=== PATIENT | male | born 1955 | race Caucasian/White ===

== ENCOUNTER 2017-10-23 10:36 | Inpatient (IN) | payer OTHER ==
[2017-10-23 11:39] LABS: ANION GAP 19 (8-16); BLOOD UREA NITROGEN 25 mg/dl (7-20); CALCIUM 9.9 mg/dl (8.4-10.2); CARBON DIOXIDE 31 mmol/L (21-31); CHLORIDE 97 mmol/L (97-110); CREATININE 1.18 mg/dl (0.61-1.24); GLUCOSE 257 mg/dl (70-220); SODIUM 144 mmol/L (135-144)
[2017-10-23 11:39] LABS: MAGNESIUM 1.5 mg/dl (1.7-2.5)
[2017-10-23 11:50] LABS: POTASSIUM 2.5 mmol/L (3.5-5.1)
[2017-10-23] MEDS: MAGNESIUM SULFATE 2 GM/50 ML 50 ML IVPB (12:09)
[2017-10-23] MEDS ORDERED: ACETAMINOPHEN 325 MG TAB PO ×2 (13:30→15:30)
[2017-10-23] MEDS ORDERED: ONDANSETRON 4 MG INJ IV (13:30)
[2017-10-23] MEDS: POTASSIUM CHLORIDE (SR) 20 MEQ TAB PO ×4 (13:47→23:51)
[2017-10-23] MEDS: POTASSIUM CHLORIDE 100 ML IVPB ×4 (14:07→23:41)
[2017-10-23] MEDS ORDERED: NACL 0.9% 3 ML SYG IV (15:30)
[2017-10-23] MEDS ORDERED: GLUCOSE GEL 15 GRAM TUBE PO ×2 (16:30)
[2017-10-23] MEDS ORDERED: DEXTROSE 50% 50 ML SYRINGE IV ×2 (16:30)
[2017-10-23] MEDS ORDERED: GLUCOSE GEL 15 GRAM TUBE BUCCAL (16:30)
[2017-10-23] MEDS ORDERED: GLUCAGON 1 MG INJ IM (16:30)
[2017-10-23 20:12] LABS: ANION GAP 16 (8-16); BLOOD UREA NITROGEN 23 mg/dl (7-20); CALCIUM 9.4 mg/dl (8.4-10.2); CARBON DIOXIDE 31 mmol/L (21-31); CHLORIDE 100 mmol/L (97-110); CREATININE 1.09 mg/dl (0.61-1.24); GLUCOSE 144 mg/dl (70-220); SODIUM 144 mmol/L (135-144)
[2017-10-23 20:28] LABS: POTASSIUM 2.9 mmol/L (3.5-5.1)
[2017-10-23] MEDS: metFORMIN 500 MG TAB PO (20:52)
[2017-10-23] MEDS: TAMSULOSIN (SR) 0.4 MG CAP PO (20:52)
[2017-10-23] MEDS: ATORVASTATIN 10 MG TAB PO (20:52)
[2017-10-23] MEDS: HYDROCHLOROTHIAZIDE 25 MG TAB PO (20:53)
[2017-10-23] MEDS: CLONIDINE 0.3 MG/24 HR PATCH TRANSDERM (21:57)
[2017-10-24] MEDS: POTASSIUM CHLORIDE 100 ML IVPB (02:13)
[2017-10-24 07:34] LABS: MAGNESIUM 1.8 mg/dl (1.7-2.5)
[2017-10-24 07:36] LABS: ANION GAP 16 (8-16); BLOOD UREA NITROGEN 22 mg/dl (7-20); CALCIUM 8.5 mg/dl (8.4-10.2); CARBON DIOXIDE 33 mmol/L (21-31); CHLORIDE 99 mmol/L (97-110); CREATININE 1.02 mg/dl (0.61-1.24); GLUCOSE 126 mg/dl (70-220); SODIUM 145 mmol/L (135-144)
[2017-10-24 07:38] LABS: POTASSIUM 2.7 mmol/L (3.5-5.1)
[2017-10-24] MEDS: metFORMIN 500 MG TAB PO ×2 (07:55→18:41)
[2017-10-24] MEDS: NEBIVOLOL 5 MG TAB PO (08:57)
[2017-10-24] MEDS: AMLODIPINE 10 MG TAB PO (08:58)
[2017-10-24] MEDS: MAGNESIUM OXIDE 400 MG TAB PO (08:58)
[2017-10-24] MEDS: LOSARTAN 50 MG TAB PO (08:58)
[2017-10-24] MEDS: POTASSIUM CHLORIDE (SR) 10 MEQ TAB PO ×2 (08:58→20:16)
[2017-10-24] MEDS ORDERED: HYDROCHLOROTHIAZIDE 25 MG TAB PO (09:00)
[2017-10-24] MEDS: POTASSIUM CHLORIDE (SR) 20 MEQ TAB PO ×3 (11:20→20:17)
[2017-10-24 13:17] LABS: ADD UMIC NO; UR ASCORBIC ACID NEGATIVE (NEGATIVE); UR BILIRUBIN (Dip) NEGATIVE (NEGATIVE); UR BLOOD (Dip) NEGATIVE (NEGATIVE); UR CLARITY CLEAR (CLEAR); UR COLOR YELLOW (YELLOW); UR GLUCOSE (Dip) NEGATIVE (NEGATIVE); UR KETONES (Dip) NEGATIVE (NEGATIVE); UR LEUKOCYTE ESTERASE (Dip) NEGATIVE Leu/ul (NEGATIVE); UR NITRITE (Dip) NEGATIVE (NEGATIVE); UR SPECIFIC GRAVITY (Dip) 1.014 (1.003-1.030); UR TOTAL PROTEIN (Dip) NEGATIVE (NEGATIVE); UR UROBILINOGEN (Dip) NEGATIVE (NEGATIVE)
[2017-10-24 17:57] LABS: ANION GAP 17 (8-16); BLOOD UREA NITROGEN 23 mg/dl (7-20); CARBON DIOXIDE 29 mmol/L (21-31); CHLORIDE 100 mmol/L (97-110); CREATININE 1.13 mg/dl (0.61-1.24); GLUCOSE 129 mg/dl (70-220); MAGNESIUM 1.7 mg/dl (1.7-2.5); POTASSIUM 3.1 mmol/L (3.5-5.1); SODIUM 143 mmol/L (135-144)
[2017-10-24] MEDS: ATORVASTATIN 10 MG TAB PO (20:16)
[2017-10-24] MEDS: TAMSULOSIN (SR) 0.4 MG CAP PO (20:16)
[2017-10-25] MEDS: metFORMIN 500 MG TAB PO ×2 (08:28→17:56)
[2017-10-25] MEDS: POTASSIUM CHLORIDE (SR) 20 MEQ TAB PO ×2 (08:29→09:00)
[2017-10-25] MEDS: NEBIVOLOL 5 MG TAB PO (08:31)
[2017-10-25] MEDS: LOSARTAN 50 MG TAB PO (08:32)
[2017-10-25] MEDS: HYDROCHLOROTHIAZIDE 25 MG TAB PO (08:33)
[2017-10-25 08:34] LABS: ANION GAP 13 (8-16); BLOOD UREA NITROGEN 22 mg/dl (7-20); CALCIUM 8.9 mg/dl (8.4-10.2); CARBON DIOXIDE 32 mmol/L (21-31); CHLORIDE 103 mmol/L (97-110); CREATININE 1.09 mg/dl (0.61-1.24); GLUCOSE 117 mg/dl (70-220); POTASSIUM 3.1 mmol/L (3.5-5.1); SODIUM 145 mmol/L (135-144)
[2017-10-25] MEDS: POTASSIUM CHLORIDE (SR) 10 MEQ TAB PO ×4 (08:34→20:19)
[2017-10-25] MEDS: AMLODIPINE 10 MG TAB PO (08:34)
[2017-10-25 08:35] LABS: MAGNESIUM 1.6 mg/dl (1.7-2.5)
[2017-10-25] MEDS: MAGNESIUM OXIDE 400 MG TAB PO (08:35)
[2017-10-25] MEDS ORDERED: POTASSIUM CHLORIDE (SR) 20 MEQ TAB PO (10:44)
[2017-10-25] MEDS ORDERED: MAGNESIUM SULFATE 4 GM/100 ML 100 ML IVPB (11:00)
[2017-10-25] MEDS: MAGNESIUM SULFATE 2 GM/50 ML 50 ML IVPB ×2 (12:01→14:22)
[2017-10-25] MEDS: ATORVASTATIN 10 MG TAB PO (20:20)
[2017-10-25] MEDS: TAMSULOSIN (SR) 0.4 MG CAP PO (20:21)
[2017-10-26 02:59] LABS: SODIUM,URINE RANDOM 57 mmol/L (30-90)
[2017-10-26 02:59] LABS: CREATININE,URINE RANDOM 65.45 mg/dl (20-370); POTASSIUM,URINE RANDOM 77.7 mmol/L (25-125)
[2017-10-26] MEDS: POTASSIUM CHLORIDE (SR) 10 MEQ TAB PO ×2 (08:05→12:27)
[2017-10-26] MEDS: NEBIVOLOL 5 MG TAB PO (08:06)
[2017-10-26] MEDS: AMLODIPINE 10 MG TAB PO (08:06)
[2017-10-26] MEDS: MAGNESIUM OXIDE 400 MG TAB PO (08:06)
[2017-10-26] MEDS: LOSARTAN 50 MG TAB PO (08:06)
[2017-10-26] MEDS: metFORMIN 500 MG TAB PO (08:07)
[2017-10-26] MEDS: HYDROCHLOROTHIAZIDE 25 MG TAB PO (08:08)
[2017-10-26 08:17] LABS: ANION GAP 16 (8-16); BLOOD UREA NITROGEN 26 mg/dl (7-20); CALCIUM 8.7 mg/dl (8.4-10.2); CARBON DIOXIDE 31 mmol/L (21-31); CHLORIDE 99 mmol/L (97-110); CREATININE 0.99 mg/dl (0.61-1.24); GLUCOSE 115 mg/dl (70-220); POTASSIUM 3.1 mmol/L (3.5-5.1); SODIUM 143 mmol/L (135-144)
[2017-10-26 08:51] LABS: MAGNESIUM 2.1 mg/dl (1.7-2.5)
[2017-10-28 21:53] LABS: RENIN, PLASMA 0.04 ng/mL/h (0.25-5.82)
[2017-10-29 14:11] LABS: CHLORIDE, RANDOM URINE 98 mmol/L (32-290)
== END 2017-10-26 12:37 | disposition home or self-care (01) | DRG 641 ==
LOC: TEL 10-26 04:20 → E/R 10:36 → TEL 13:06
DX: E87.6 Hypokalemia (principal); E83.42 Hypomagnesemia; C76.50 Malignant neoplasm of unspecified lower limb; I10 Essential (primary) hypertension; E11.9 Type 2 diabetes mellitus without complications; G51.0 Bell's palsy; N40.0 Benign prostatic hyperplasia without lower urinary tract symptoms; T50.2X5A Adverse effect of carbonic-anhydrase inhibitors, benzothiadiazides and other diuretics, initial encounter; Y92.019 Unspecified place in single-family (private) house as the place of occurrence of the external cause; Z79.84 Long term (current) use of oral hypoglycemic drugs; Z87.891 Personal history of nicotine dependence
CPT/HCPCS: 36415; 80048; 81003; 82088; 82436; 83735; 84133; 84155; 84244; 84300; 93005; 96374; 99285-25; G0378